=== PATIENT | female | born 1970 | race Caucasian/White ===

== ENCOUNTER → 2021-12-05 | Outpatient (CLI) | payer OTHER | END | disposition home or self-care (01) | LOC: PLD 14:57 → LAB SHORT 14:57 | DX: D36.10 Benign neoplasm of peripheral nerves and autonomic nervous system, unspecified (principal) | CPT/HCPCS: 88305 ==

== ENCOUNTER 2024-06-04 08:53 | Day surgery (SDC) | payer OTHER ==
[~2024-06-04] VITALS: Ht 149.9 cm; Wt 46.0 kg
[~2024-06-04 08:53] MED LIST: Lactated Ringer's 1,000 ML IV ONE; propofoL 50 ML IV ONE
[2024-06-04] MEDS ORDERED: PROGESTERONE5000 GM (09:12)
[2024-06-04] MEDS ORDERED: FAMO20 (09:12)
[2024-06-04] MEDS ORDERED: ESTRADIOL (TWI1 EACH (09:12)
[2024-06-04] MEDS ORDERED: VITAMIN D5000 UNIT (09:13)
[2024-06-04] MEDS ORDERED: CYTO B (09:13)
[2024-06-04] MEDS ORDERED: ASCORBIC ACID500 MG (09:13)
[2024-06-04] MEDS ORDERED: [UNRECOGNIZED DRUG - OTHER] (09:13)
[2024-06-04] MEDS ORDERED: [UNRECOGNIZED DRUG - OTHER] (09:13)
[2024-06-04] MEDS ORDERED: CALCIUM-MAGNES1 EA11 (09:31)
[2024-06-04] MEDS ORDERED: MULVITA (09:32)
[2024-06-04] MEDS ORDERED: ASHWAGANDHA300 MG (09:32)
[2024-06-04] MEDS ORDERED: Lactated Ringer's 1,000 ML IV ONE (09:44)
[2024-06-04 13:34] VITALS: BP 105/73
== END 2024-06-04 11:29 | disposition home or self-care (01) ==
LOC: ORSCSDS 08:53
PROVIDERS: Specialist
PROC: 0DB68ZX Excision of Stomach, Via Natural or Artificial Opening Endoscopic, Diagnostic (ICD-10-PCS; principal; 2024-06-04 10:15)
PROC: 0DJD8ZZ Inspection of Lower Intestinal Tract, Via Natural or Artificial Opening Endoscopic (ICD-10-PCS; principal; 2024-06-04 10:15)
PROC: 0DB58ZX Excision of Esophagus, Via Natural or Artificial Opening Endoscopic, Diagnostic (ICD-10-PCS; principal; 2024-06-04 10:15)
DX: Z12.11 Encounter for screening for malignant neoplasm of colon (principal); Z86.0101 Personal history of adenomatous and serrated colon polyps; Z80.0 Family history of malignant neoplasm of digestive organs; Z83.719 Family history of colon polyps, unspecified; R05.3 Chronic cough; K64.8 Other hemorrhoids; Z79.899 Other long term (current) drug therapy
CPT/HCPCS: 43239; G0105; 88305; 88342; J2704; J7120